=== PATIENT | male | born 1985 | race Two or more races ===

== ENCOUNTER 2017-09-28 20:44 | Emergency (ER) | payer SELFPAY ==
[~2017-09-28] VITALS: Ht 170.2 cm; Wt 68.9 kg
[2017-09-28] MEDS ORDERED: LORAZEPAM INJ 2 MG/ML VIAL ONE (20:49)
[2017-09-28] MEDS ORDERED: OLANZAPINE 10 MG VIAL IM ONE ×2 (20:52→21:00)
[2017-09-28] MEDS ORDERED: LORAZEPAM INJ 2 MG/ML VIAL IM ONE (21:00)
--- NOTE | 2017-09-28 21:00 | NUR ---
PT BBRA C/O "USE METH/HEROIN AND THC" PT IS AAOX3. RESP EVEN AND UNLABORED. NO S/S OF DISTRESS NOTED. PT NOTED TO BE AGREVATED AND YELLING. PT SAFETY AND COMFORT IN PLACE. PT PLACED ON MONITOR AND POX. AWAITING MD FOR EVAL.
--- NOTE | 2017-09-28 21:54 | NUR ---
Patient is resting comfortably in bed with eyes closed. Easily aroused. VSS
--- NOTE | 2017-09-28 23:08 | NUR ---
Patient is resting comfortably in bed with eyes closed. Easily aroused. VSS
--- NOTE | 2017-09-29 01:53 | NUR ---
PT RESTING IN BED. PT SAFETY AND COMFORT MEASURES IN PLACE. NO S/S OF DISTRESS NOTED IN PT.
[2017-09-29 04:39] VITALS: BP 138/85
== END 2017-09-29 04:40 | disposition home or self-care (01) ==
LOC: ER 20:52
DX: F15.10 Other stimulant abuse, uncomplicated (principal); R45.1 Restlessness and agitation
CPT/HCPCS: A4606; J2060; J3490; Z7610